=== PATIENT | male | born 1995 | race Caucasian/White ===

== ENCOUNTER 2017-07-26 07:29 | Emergency (ER) | payer MEDICAID ==
[2017-07-26 07:36] VITALS: RESP 18; TEMP 97.5
--- NOTE | 2017-07-26 08:44 | EDPHY ---
H & P Time Seen by Provider: 07/26/17 08:22 HPI/ROS: CHIEF COMPLAINT: Left index finger injury HISTORY OF PRESENT ILLNESS: The patient is a 22-year-old male who presents to the emergency department with left index finger pain. The patient states on Monday he slammed his index finger in the door. He developed bruising under the fingernail. He attempted to drain the blood with a sterile needle. He got a small amount of discharge. The patient also developed a small swelling at the lateral base of his index finger nail. He also attempted to drain this with a sterile needle. He now notices some mild redness near the cuticle where he stab swelling. His pain is moderate. It is worse with movement. He denies any fevers or chills. REVIEW OF SYSTEMS: Negative Past Medical/Surgical History: Noncontributory Smoking Status: Never smoked Physical Exam: General Appearance: Alert and no distress. Head: Pupils equal. Normal. Respiratory: No respiratory distress. Cardiac: regular rate and rhythm. Extremities: Patient has a mildly swollen left index finger. There is 100% subungual hematoma. Patient has mild erythema at the lateral base of the index finger nail. There is no pus discharge. No redness streaking up the finger. No signs of tenosynovitis. Skin: No rashes or lesions. Neuro: Alert. Normal mood and affect. Constitutional: Initial Vital Signs Temperature (C) 36.4 C 07/26/17 07:33 Heart Rate 58 L 07/26/17 07:33 Respiratory Rate 18 07/26/17 07:33 Blood Pressure 113/73 07/26/17 07:33 O2 Sat (%) 98 07/26/17 07:33 O2 Delivery Mode Room Air Allergies/Adverse Reactions: No Known Allergies Allergy (Verified 07/26/17 07:32) Home Medications: Medication Instructions Recorded Albuterol [Proventil Neb] 02/03/14 Cephalexin [Keflex (*)] 500 mg PO QID 7 Days cap 07/26/17 Medical Decision Making ED Course/Re-evaluation: In the emergency department I discussed possible etiologies with the patient. I answered all his questions. X-ray was ordered. Procedure: Finger nail trephination Indication: Supple hematoma Patient consented to the procedure. I discussed the pros and cons. Using electrocautery, finger nail trephination was performed. A large amount of blood was obtained. Postprocedure the nail appeared stable. I discussed the likelihood of the patient losing his nail. I do not feel he needed is nail removed at this time. Finger x-ray: No fracture dislocation. I discussed the results of the x-ray with the patient. I answered all his questions. Due to the small area of erythema he will be given Keflex to cover for early paronychia infection. I gave him warnings prior to leaving. He will return with worsening symptoms. Differential Diagnosis: My differential includes but is not limited to subungual hematoma, nail bed injury, fracture, dislocation, contusion, tenosynovitis, paronychia, felon, abscess, Departure - Departure Disposition: Home, Routine, Self-Care Clinical Impression: Subungual hematoma of digit of hand Qualifiers: Encounter type: initial encounter Qualified Code(s): S60.10XA - Contusion of unspecified finger with damage to nail, initial encounter Condition: Good Instructions: Subungual Hematoma (ED), Paronychia (ED) Additional Instructions: Apply bacitracin to the edge of your finger. Return with increasing redness, fever, pain or any other concerns. Referrals: Kishan Goldstein MD [Medical Doctor] - 5-7 days, if not improved Prescriptions: Cephalexin [Keflex (*)] 500 mg PO QID 7 Days cap
[2017-07-26 09:40] VITALS: BP 121/86; PULSE 72; O2SAT 96
== END 2017-07-26 09:38 | disposition home or self-care (01) ==
PROC: 0H9QXZZ Drainage of Finger Nail, External Approach (ICD-10-PCS; principal; 2017-07-26)
DX: S60.122A Contusion of left index finger with damage to nail, initial encounter (principal); W23.0XXA Caught, crushed, jammed, or pinched between moving objects, initial encounter